=== PATIENT | female | born 1945 | race Two or more races ===

== ENCOUNTER 2018-07-04 05:12 | Day surgery (SDC) | payer OTHER ==
[2018-07-04] MEDS ORDERED: METOCLOPRAMIDE HCL 10 MG/2 ML VIAL ONE ×2 (05:51→12:14)
[2018-07-04] MEDS ORDERED: oxyCODONE HCL SR 10MG TAB.SR.12H PO ONE (05:51)
[2018-07-04] MEDS ORDERED: ACETAMINOPHEN ES 500 MG TABLET ONE (05:51)
[2018-07-04] MEDS ORDERED: CELECOXIB 100 MG CAPSULE ONE (05:51)
[2018-07-04] MEDS ORDERED: ANESTHESIA TRAY IN PYXIS 1 EA TRAY MC ONE (06:20)
[2018-07-04] MEDS ORDERED: MIDAZOLAM HCL 2 MG/2ML VIAL ONE (06:27)
[2018-07-04] MEDS ORDERED: FENTANYL PF 250MCG/5ML AMPUL ONE (06:28)
[2018-07-04] MEDS ORDERED: FENTANYL PF 100MCG/2ML AMPUL ONE (06:28)
[2018-07-04] MEDS ORDERED: MEPERIDINE HCL/PF 100 MG/ML DISP.SYRIN ONE (06:29)
[2018-07-04] MEDS ORDERED: ROCURONIUM BROMIDE 50 MG/5 ML ONE (06:30)
[2018-07-04] MEDS ORDERED: KETOROLAC TROMETHAMINE INJ 30 MG/ML VIAL ONE ×2 (06:46→09:46)
[2018-07-04] MEDS ORDERED: BUPIVACAINE MPF 0.5% W/EPI INJ 30 ML VIAL ONE (06:46)
[2018-07-04] MEDS ORDERED: MORPHINE SULFATE INJ 4 MG/ML DISP.SYRIN ONE (06:46)
[2018-07-04] MEDS ORDERED: BACITRACIN 50000 UNITS/VIAL ONE (06:47)
[2018-07-04] MEDS ORDERED: BUPIVACAINE 0.25% 75 MG/30 ML VIAL ONE (06:57)
[2018-07-04] MEDS ORDERED: TRANEXAMIC ACID 1,500 MG in SODIUM CHLORIDE IRRIG SOLUTION 85 ML IR ONE (07:00)
[2018-07-04] MEDS ORDERED: oxyCODONE IR immediate release 5 MG ONE (09:45)
[2018-07-04] MEDS ORDERED: ASPIRIN 600 MG/SUPP.RECT RC ONE (10:00)
[2018-07-04] MEDS ORDERED: ONDANSETRON HCL/PF 4 MG/2 ML VIAL ONE (11:50)
== END 2018-07-04 12:30 | disposition home or self-care (01) ==
LOC: DS 05:12
PROVIDERS: ATTEND Orthopaedic Surgery
DX: M75.102 Unspecified rotator cuff tear or rupture of left shoulder, not specified as traumatic (principal); M25.712 Osteophyte, left shoulder; E11.9 Type 2 diabetes mellitus without complications; I10 Essential (primary) hypertension; E78.00 Pure hypercholesterolemia, unspecified; Z98.890 Other specified postprocedural states; Z80.9 Family history of malignant neoplasm, unspecified; Z83.6 Family history of other diseases of the respiratory system
CPT/HCPCS: 23472; 36415; 73030; 82962 ×2; 86850; 86921 ×2; 87081; A4217 ×2; A6402; J0690; J1885 ×2; J2175; J2250; J2270; J2405 ×2; J2704; J2710; J2765 ×2; J3010 ×2; J3490 ×3; 88305-TC; 88311-TC